=== PATIENT | male | born 1975 | race Caucasian/White ===

== ENCOUNTER 2016-08-17 10:04 | Emergency (ER) | payer BC, OTHER ==
[2016-08-17] MEDS ORDERED: Ondansetron HCl/PF 4 MG/2 ML Vial ONE (10:21)
[2016-08-17] MEDS ORDERED: Ondansetron ODT 4 MG TAB ONE (10:21)
[2016-08-17] MEDS ORDERED: Sodium Chloride 0.9% 1,000 ML ONE (10:21)
[2016-08-17 10:48] LABS: #Basophils 0.1 thou/uL (0.0-0.2); #Eosinphils 0.4 thou/uL (0.0-0.7); #Lymphocytes 1.9 thou/uL (1.20-3.40); #Monocytes 0.7 thou/uL (0.11-0.59); #Neutrophils 6.9 thou/uL (1.40-6.50); %Basophils 1.1 % (0.0-1.0); %Eosinophils 4.3 % (0.0-10.0); %Lymphocytes 18.8 % (21.0-51.0); %Monocytes 7.1 % (0.0-10.0); %Neutrophils 68.7 % (42.0-75.0); Hemoglobin 17.3 g/dL (14.0-18.0); Mean Corpuscular HGB CONC 32.6 g/dL (32.0-36.0); Mean Corpuscular Hemoglobin 28.1 pg (27.0-31.0); Mean Platelet Volume 7.4 fL (7.4-10.4); Platelet Count 279 thou/uL (130-400); RBC Distribution Width 11.9 % (11.5-14.5); Red Blood Cell (RBC) Count 6.15 mill/uL (4.70-6.10)
[2016-08-17 11:05] LABS: ALT (SGPT) 33 U/L (8-55); AST (SGOT) 17 U/L (5-34); Albumin 4.3 g/dL (3.5-5.0); Alkaline Phosphatase 64 U/L (40-150); Anion Gap 15 mmol/L (10-20); BUN (Urea Nitrogen) 18 mg/dL (8.9-20.6); Bilirubin, Total 0.6 mg/dL (0.2-1.2); Calc. Creatinine Clearance 0 mL/min (70-130); Carbon Dioxide 20 mmol/L (22-29); Chloride 107 mmol/L (98-107); Estimated GFR-MDRD 76; Globulin 3.7 g/dL (2.4-3.5); Glucose 100 mg/dL (70-105); Potassium 4.3 mmol/L (3.5-5.1); Sodium 138 mmol/L (136-145)
[2016-08-17 11:56] LABS: Bilirubin Negative (Negative); Blood, Urine Negative (Negative); Clarity Clear (Clear); Glucose, Urine (Dipstick) Negative (Negative); Leukocyte Negative (Negative); Nitrite Negative (Negative); Protein, Urine (Dipstick) Negative (Neg-Trace); Urobilinogen 0.2 mg/dL (0.2-1.0)
[2016-08-17] MEDS ORDERED: diphenhydrAMINE HCl 25 MG CAP ONE (12:21)
[2016-08-17] MEDS ORDERED: Sodium Chloride 0.9% 0 ML ONE (12:21)
[2016-08-17] MEDS ORDERED: Promethazine HCl 25 MG/ML VIAL ONE (12:21)
[2016-08-17] MEDS ORDERED: Sodium Chloride 0.9% 100 ML ONE ×2 (12:22)
[2016-08-17] MEDS ORDERED: Diphenoxylate HCl/Atropine Tablet ONE (12:28)
== END 2016-08-17 13:03 | disposition home or self-care (01) ==
LOC: NAV ER/OP 10:04 → NAV ERS 13:03
DX: R19.7 Diarrhea, unspecified (principal); R11.0 Nausea; F17.220 Nicotine dependence, chewing tobacco, uncomplicated
CPT/HCPCS: 80053; 81003; 85025; 96365; 96375; J2405; J2550; J7050; Q0162

== ENCOUNTER 2021-03-11 13:17 | Emergency (ER) | payer OTHER ==
[2021-03-12 16:15] LABS: SARS-CoV-2 PCR by NAA DETECTED (NotDetected)
== END 2021-03-11 14:45 | disposition home or self-care (01) ==
LOC: NAV ERS 13:17
DX: U07.1 COVID-19 (principal); F17.220 Nicotine dependence, chewing tobacco, uncomplicated
CPT/HCPCS: 87804; 99283; U0003; U0005